=== PATIENT | female | born 2000 | race Caucasian/White ===

== ENCOUNTER 2019-09-16 13:34 | Outpatient (RCR) | payer MEDICAID, SELFPAY | END 2019-10-06 00:01 | LOC: LAB 13:34 | DX: C41.9 Malignant neoplasm of bone and articular cartilage, unspecified (principal) | CPT/HCPCS: 36415; 80053; 83735; 85007; 85027 ==

== ENCOUNTER 2019-10-09 14:49 | Outpatient (CLI) | payer MEDICAID, SELFPAY ==
[2019-10-09 15:16] LABS: Basophils % 0.6 %; Eosinophils # 0.2 10^3/uL (0.0-0.8); Eosinophils % 3.5 %; Hematocrit 34.7 % (37.0-47.0); Hemoglobin 11.2 g/dL (11.5-15.3); Lymphocytes # 1.8 10^3/uL (1.5-6.5); Lymphocytes % 34.2 %; Mean Corpuscular HGB Conc 32.3 g/dL (30.0-36.0); Mean Corpuscular Hemoglobin 30.4 pg (28.0-34.0); Mean Platelet Volume 9.7 fL (7.4-10.4); Monocytes # 0.4 10^3/uL (0.2-0.9); Monocytes % 6.9 %; Neutrophils # 2.8 10^3/uL (1.8-8.0); Neutrophils % 54.4 %; Nucleated Red Blood Cells % 0 %; Platelet Count 260 10^3/cmm (130-400); Red Blood Count 3.69 10^6/uL (4.1-5.3); Red Cell Distribution Width 16.3 % (12.1-15.1); White Blood Count 5.2 10^3/uL (4.5-13.0)
[2019-10-09 15:34] LABS: Alanine Aminotransferase 43 U/L (0-33); Albumin Level 5.4 g/dL (3.5-5.2); Alkaline Phosphatase 135 IU/L (35-105); Anion Gap 16.8 (5-19); Aspartate Amino Transferase 23 U/L (0-32); Blood Urea Nitrogen 14 mg/dL (6-20); Calcium 10.3 mg/Dl (8.6-10.0); Carbon Dioxide 23 mmol/L (22-29); Chloride 102 mmol/L (98-107); Glomerular Filtration Rate 80.7 mL/min (90-130); Glucose 105 mg/dL (74-109); Magnesium 2.2 mg/dL (1.7-2.2); Phosphorus 4.3 mg/dL (2.5-4.5); Potassium 3.8 mmol/L (3.5-5.1); Sodium 138 mmol/L (136-145); Total Bilirubin 0.4 mg/dL (0.15-1.2); Total Protein 7.4 g/dL (6.6-8.7)
== END 2019-10-09 14:50 | disposition home or self-care (01) ==
LOC: LAB 14:58
PROVIDERS: Family Provider Emergency Medicine; PCP Emergency Medicine; Referring Provider Emergency Medicine; Visit Provider Emergency Medicine
DX: C41.9 Malignant neoplasm of bone and articular cartilage, unspecified (principal)
CPT/HCPCS: 36415; 80053; 83735; 84100; 85025

== ENCOUNTER 2019-11-26 07:52 | Outpatient (CLI) | payer MEDICAID, SELFPAY ==
[2019-11-26 08:28] LABS: Basophils # 0.1 10^3/uL (0.0-0.1); Basophils % 0.7 %; Eosinophils % 0.1 %; Hematocrit 31.8 % (37.0-47.0); Lymphocytes # 1.8 10^3/uL (1.5-6.5); Lymphocytes % 24.9 %; Mean Corpuscular HGB Conc 31.4 g/dL (30.0-36.0); Mean Corpuscular Hemoglobin 28.7 pg (28.0-34.0); Mean Corpuscular Volume 91.4 fL (81-99); Mean Platelet Volume 11.1 fL (7.4-10.4); Monocytes # 0.7 10^3/uL (0.2-0.9); Monocytes % 10.1 %; Neutrophils # 4.4 10^3/uL (1.8-8.0); Neutrophils % 62.8 %; Nucleated Red Blood Cells % 0 %; Platelet Count 323 10^3/cmm (130-400); Red Blood Count 3.48 10^6/uL (4.1-5.3)
[2019-11-26 08:41] LABS: Alanine Aminotransferase 10 U/L (0-33); Albumin Level 4.1 g/dL (3.5-5.2); Alkaline Phosphatase 130 IU/L (35-105); Aspartate Amino Transferase 14 U/L (0-32); Blood Urea Nitrogen 11 mg/dL (6-20); Calcium 9.7 mg/dL (8.5-10.5); Carbon Dioxide 25 mmol/L (22-29); Chloride 101 mmol/L (98-107); Globulin 3.7 g/dL (1.3-4.6); Glomerular Filtration Rate 107.8 mL/min (90-130); Glucose 110 mg/dL (65-115); Magnesium 2.4 mg/dL (1.7-2.2); Phosphorus 4.5 mg/dL (2.5-4.5); Sodium 139 mmol/L (136-145); Total Bilirubin 0.2 mg/dL (0.15-1.2); Total Protein 7.8 g/dL (6.6-8.7)
== END 2019-11-26 07:53 | disposition home or self-care (01) ==
PROVIDERS: Visit Provider Emergency Medicine
DX: C41.9 Malignant neoplasm of bone and articular cartilage, unspecified (principal)
CPT/HCPCS: 36415; 80053; 83735; 84100; 85025

== ENCOUNTER 2021-01-02 19:59 | Emergency (ER) | payer BC, MEDICAID, SELFPAY ==
[2021-01-02 20:22] VITALS: BP 145/87; PULSE 110; RESP 17; TEMP 36.7; O2SAT 100; BMI 24.2
[2021-01-03 00:25] VITALS: BP 92/44; PULSE 62; RESP 16; O2SAT 98
--- NOTE | 2021-01-03 00:34 | W.ED.PREGNAN ---
HPI - General: Chief complaint: Vaginal Bleeding Stated complaint: sharp pain in back, spotting Time Seen by Provider: 01/03/21 00:16 Source: patient Mode of arrival: ambulatory Limitations: no limitations History of Present Illness: HPI Narrative: 20-year-old female states she took a test today and it came back positive. She states she believes she is anywhere from 4 to 7 weeks . She states that she started having vaginal spotting today and some lower back pain. She denies any clots passing and denies any abdominal pain. She denies any worsening improving factors. She had 1 previous with no problems. She had no vomiting or diarrhea. MD Complaint: abdominal pain and vaginal bleeding Date of Last Menstrual Period: 11/02/20 Associated symptoms: Deny abdominal pain, headache(s), nausea or vomiting Review of Systems Const: Denies: fever(s), chills, body aches or change in appetite Eyes: Denies: blurry vision or eye discomfort ENMT: Denies: throat pain or dental pain Card: Denies: chest pain Resp: Denies: dyspnea GI: Denies: abdominal pain, nausea, vomiting or diarrhea : Reports: vaginal bleeding Musc: Reports: back pain Skin/Breast: Denies: rash Neuro: Denies: headache(s) Psych: Denies: depression Rod/Lymph: Denies: easy bruising All/Imm: Denies: urticaria [facility] ED Female Reproductive History: Date of last menstrual period: 11/02/20 Physical Exam Const: COMMON NORMALS: no acute distress, patient oriented x3 and healthy appearing HENMT: COMMON NORMALS: normocephalic and atraumatic HEAD & SCALP: normocephalic and atraumatic Eye: COMMON NORMALS: Equal, round and reactive pupils present and EOMs intact bilaterally PUPIL: Yes Equal, round and reactive pupils present Neck/C-Spine: COMMON NORMALS: full ROM and supple Chest: COMMONS NORMALS: normal inspection of the chest and normal palpation of entire chest wall Resp: COMMON NORMALS: normal respiratory effort, No retractions, No use of accessory muscles and clear to auscultation bilaterally AUSCULTATION: clear to auscultation bilaterally Cardio: COMMON NORMALS: regular rate, regular rhythm and No murmurs present (Cardio) RATE: regular rate RHYTHM: regular rhythm GI: COMMON NORMALS: Normal to inspection, nondistended, normoactive bowel sounds present, Soft to palpation, non-tender and no masses PALPATION: Yes Soft to palpation Extremity: COMMON NORMALS: normal to inspection and full ROM Neuro: COMMON NORMALS: patient oriented x3, moves all extremities and no focal motor deficits Psych: COMMON NORMALS: mental status grossly normal, Normal thought process present and cooperative THOUGHT PROCESS: Normal thought process present Skin: COMMON NORMALS: no rashes or lesions noted and no wounds GENERAL SKIN EXAM: no rashes or lesions noted Course Vital Signs: Vital signs: Vital Signs Temperature 98.1 F 01/02/21 20:22 Pulse Rate 77 01/03/21 01:30 Respiratory Rate 15 01/03/21 01:30 Blood Pressure 113/56 01/03/21 01:30 Pulse Oximetry 98 01/03/21 01:30 MDM - OB/Uterine Contractions MDM Narrative: Medical decision making narrative: Patient presents here with threatened miscarriage. Her bleeding is very minimal and her formal ultrasound here showed an IUP at 6 weeks. She does have a urinary tract infection. She is to follow-up with her OB and she is to take Keflex. She is return if worsening. She understands agrees to plan. Lab Data: Labs: Lab Results 01/02/21 01/02/21 01/02/21 Range/Units 00:23 00:23 00:23 WBC 6.2 (4.0-10.0) 10^3/ uL RBC 4.05 L (4.1-5.3) 10^6/u L Hgb 12.7 (11.5-15.3) g/dL Hct 38.0 (37.0-47.0) % MCV 93.8 (81-99) fL MCH 31.4 (28.0-34.0) pg MCHC 33.4 (30.0-36.0) g/dL RDW 13.2 (12.1-15.1) % Plt Count 215 (130-400) 10^3/c mm MPV 9.8 (7.4-10.4) fL Neut % (Auto) 54.4 % Lymph % (Auto) 35.6 % [place]al[place] % (Auto) 8.1 % Eos % (Auto) 1.3 % Baso % (Auto) 0.3 % Neut # (Auto) 3.35 (1.8-7.7) 10^3/u L Lymph # (Auto) 2.2 (0.8-4.8) 10^3/u L [place]alier # (Auto) 0.5 (0.2-0.9) 10^3/u L Eos # (Auto) 0.1 (0.0-0.8) 10^3/u L Baso # (Auto) 0.0 (0.0-0.1) 10^3/u L Nucleated RBC % (a uto) 0 % Nucleated RBCs # 0.0 /100WBC Sodium 134 L (136-145) mmol/L Potassium 3.7 (3.5-5.1) mmol/L Chloride 102 (98-107) mmol/L Carbon Dioxide 21 L (22-29) mmol/L Anion Gap 14.7 (5-19) BUN 9 (6-20) mg/dL Creatinine 0.5 (0.5-0.9) mg/dL GFR Calculation 155.7 H (90-130) mL/min Glucose 81 (65-115) mg/dL Calculated Osmolal ity 276 L (285-295) mOsm/k g Calcium 8.9 (8.5-10.5) mg/dL Total Bilirubin 0.3 (0.15-1.2) mg/dL AST 9 (0-32) U/L ALT 8 (0-33) U/L Alkaline Phosphata se 144 H (35-105) IU/L Total Protein 6.7 (6.6-8.7) g/dL Albumin 4.0 (3.5-5.2) g/dL Globulin 2.7 (1.3-4.6) g/dL Ser , [place] 56[address].00 mIU/mL Urine Color (Yellow) Urine Appearance (CLEAR) Urine pH (5-7) Ur Specific Gravit y (1.005-1.030) Urine Protein (Negative) Urine Glucose (UA) (Normal) Urine Ketones (Negative) Urine Blood (Negative) Urine Nitrate (Negative) Urine Bilirubin (Negative) Urine Urobilinogen (Negative) mg/dL Ur Leukocyte Cookie ase (Negative) Urine RBC (0-2) /hpf Urine WBC (0-5) /hpf Ur Squamous Epith Cells (0-5) /hpf Amorphous Sediment Urine Bacteria (NONE) /hpf Urine Mucus /hpf Blood Type A Positive Rho(D) Type Positive / 4+ 01/02/21 Range/Units 22:40 WBC (4.0-10.0) 10^3/ uL RBC (4.1-5.3) 10^6/u L Hgb (11.5-15.3) g/dL Hct (37.0-47.0) % MCV (81-99) fL MCH (28.0-34.0) pg MCHC (30.0-36.0) g/dL RDW (12.1-15.1) % Plt Count (130-400) 10^3/c mm MPV (7.4-10.4) fL Neut % (Auto) % Lymph % (Auto) % Cavalier % (Auto) % Eos % (Auto) % Baso % (Auto) % Neut # (Auto) (1.8-7.7) 10^3/u L Lymph # (Auto) (0.8-4.8) 10^3/u L [place]ier # (Auto) (0.2-0.9) 10^3/u L Eos # (Auto) (0.0-0.8) 10^3/u L Baso # (Auto) (0.0-0.1) 10^3/u L Nucleated RBC % (a uto) % Nucleated RBCs # /100WBC Sodium (136-145) mmol/L Potassium (3.5-5.1) mmol/L Chloride (98-107) mmol/L Carbon Dioxide (22-29) mmol/L Anion Gap (5-19) BUN (6-20) mg/dL Creatinine (0.5-0.9) mg/dL GFR Calculation (90-130) mL/min Glucose (65-115) mg/dL Calculated Osmolal ity (285-295) mOsm/k g Calcium (8.5-10.5) mg/dL Total Bilirubin (0.15-1.2) mg/dL AST (0-32) U/L ALT (0-33) U/L Alkaline Phosphata se (35-105) IU/L Total Protein (6.6-8.7) g/dL Albumin (3.5-5.2) g/dL Globulin (1.3-4.6) g/dL Ser , Ritika i-Qnt mIU/mL Urine Color Yellow (Yellow) Urine Appearance Sl hazy (CLEAR) Urine pH 5 (5-7) Ur Specific Gravit y 1.025 (1.005-1.030) Urine Protein 1+ H (Negative) Urine Glucose (UA) Norm (Normal) Urine Ketones 1+ H (Negative) Urine Blood Neg (Negative) Urine Nitrate Positive H (Negative) Urine Bilirubin Neg (Negative) Urine Urobilinogen Norm (Negative) mg/dL Ur Leukocyte Cookie ase Negative (Negative) Urine RBC 0-4 H (0-2) /hpf Urine WBC 0-4 H (0-5) /hpf Ur Squamous Epith Cells 0-4 H (0-5) /hpf Amorphous Sediment Not Reportable Urine Bacteria 2+ H (NONE) /hpf Urine Mucus 2+ /hpf Blood Type Rho(D) Type Discharge Plan Discharge Patient Disposition: Home Clinical Impression: Threatened , Acute cystitis Condition: Stable Prescriptions: New cephalexin 500 mg capsule 500 mg PO TID 7 Days Qty: 21 RF: 0 Discharge Orders: Discharge ED (Routine); Ordered 01/03/21 Ordered By: Madeline Campbell Discharge Diet: Advance as tolerated Discharge Activity: Resume usual activity Patient Instructions: Threatened Miscarriage (ED), Urinary Tract Infection in Women (ED) Coding Level of Care Code ED Client Success Specialist for Alberto Fwd Exam Comprehensive
[2021-01-03 00:35] LABS: Basophils % 0.3 %; Eosinophils # 0.1 10^3/uL (0.0-0.8); Eosinophils % 1.3 %; Hemoglobin 12.7 g/dL (11.5-15.3); Lymphocytes # 2.2 10^3/uL (0.8-4.8); Lymphocytes % 35.6 %; Mean Corpuscular HGB Conc 33.4 g/dL (30.0-36.0); Mean Corpuscular Hemoglobin 31.4 pg (28.0-34.0); Mean Corpuscular Volume 93.8 fL (81-99); Mean Platelet Volume 9.8 fL (7.4-10.4); Monocytes # 0.5 10^3/uL (0.2-0.9); Monocytes % 8.1 %; Neutrophils # 3.35 10^3/uL (1.8-7.7); Neutrophils % 54.4 %; Nucleated Red Blood Cells % 0 %; Platelet Count 215 10^3/cmm (130-400); Red Blood Count 4.05 10^6/uL (4.1-5.3); Red Cell Distribution Width 13.2 % (12.1-15.1); White Blood Count 6.2 10^3/uL (4.0-10.0)
[2021-01-03 00:55] LABS: Add Urine Culture? Yes; Add Urine Microscopic? YES; Bacteria Urine 2+ /hpf; Bilirubin Urine Neg (Negative); Blood Urine Neg (Negative); Glucose Urine UA Norm (Normal); Ketones Urine 1+ (Negative); Leukocyte Esterase Urine Negative (Negative); Mucus Urine 2+ /hpf; Nitrate Urine Positive (Negative); Protein Urine 1+ (Negative); RBC Urine 0-4 /hpf (0-2); Specific Gravity, Urine 1.025 (1.005-1.030); Squamous Epithelial Cell Urine 0-4 /hpf (0-5); Urine Appearance SL Hazy (CLEAR); Urine Color Yellow (Yellow); Urobilinogen Urine Norm (Negative); WBC Urine 0-4 /hpf (0-5); pH Urine 5 (5-7)
[2021-01-03 01:00] LABS: Alanine Aminotransferase 8 U/L (0-33); Alkaline Phosphatase 144 IU/L (35-105); Anion Gap 14.7 (5-19); Aspartate Amino Transferase 9 U/L (0-32); Blood Urea Nitrogen 9 mg/dL (6-20); Calcium 8.9 mg/dL (8.5-10.5); Carbon Dioxide 21 mmol/L (22-29); Chloride 102 mmol/L (98-107); Globulin 2.7 g/dL (1.3-4.6); Glomerular Filtration Rate 155.7 mL/min (90-130); Glucose 81 mg/dL (65-115); Osmolality Calculated 276 mOsm/kg (285-295); Potassium 3.7 mmol/L (3.5-5.1); Sodium 134 mmol/L (136-145); Total Bilirubin 0.3 mg/dL (0.15-1.2); Total Protein 6.7 g/dL (6.6-8.7)
--- NOTE | 2021-01-03 01:28 | US_ITS ---
WS: [id number] EARLY OBSTETRICAL ULTRASOUND (<14 WEEKS). HISTORY: vaginlal bleeding COMPARISON: None available. Single intrauterine gestational sac is identified. Cardiac activity at 160 BPM. [place]-rump length chapin sures 0.9 cm which corresponds to a gestation of 6w6d. Normal-appearing yolk sac and amnion demonstra bette. No subchorionic hemorrhage. No free fluid. Simple cyst but is likely a corpus luteum associated with the RIGHT ovary. Cyst measures 1.8 x 3.0 x 2.6 cm. Normal vascularity in the adjacent ovary. LEFT ovary is normal. Cervix is closed. US/US OB <=14 wk fetus w transvag IMPRESSION: 1. Single intrauterine gestation of 6 weeks 6 days with an EDC of 08/23/2021. 2. Moderate size RIGHT ovarian corpus luteum cyst.
[2021-01-03 01:30] VITALS: BP 113/56; PULSE 77; RESP 15; O2SAT 98
[2021-01-03] MEDS: cephALEXin 500 mg Capsule PO (01:46)
[2021-01-03 02:46] VITALS: BP 116/64; PULSE 78; RESP 18; O2SAT 97
== END 2021-01-03 02:48 | disposition home or self-care (01) ==
PROVIDERS: Nurse Practitioner Family; Emergency Provider Emergency Medicine
DX: O20.0 Threatened abortion (principal); O23.11 Infections of bladder in pregnancy, first trimester; Z3A.01 Less than 8 weeks gestation of pregnancy
CPT/HCPCS: 76801; 76817; 80053; 81001; 84702; 85025; 86900; 87086; 99283

== ENCOUNTER 2021-02-21 10:38 | Emergency (ER) | payer BC, MEDICAID, SELFPAY ==
[2021-02-21 11:24] VITALS: BP 114/72; PULSE 92; RESP 16; TEMP 36.7; O2SAT 96; BMI 21.4
[2021-02-21 12:45] VITALS: BP 114/72; PULSE 92; RESP 16; O2SAT 96
--- NOTE | 2021-02-21 12:58 | ED_ITS ---
HPI - Skin/Abscess/Foreign Bdy General: Chief complaint: Eye Problems Stated complaint: left eye swelling Time Seen by Provider: 02/21/21 12:28 Source: patient Mode of arrival: ambulatory Limitations: no limitations History of Present Illness: HPI narrative: Patient is a 20-year-old female who presents to ED today for evaluation of a rash. Patient tells me she first noticed rash to her right arm yesterday after being outside. She states rash has since spread to her left arm and the left side of her face. She became concerned when she woke up this morning and her left eye was swollen. She describes the itch as burning and pruritic. Denies any household or chemical exposures. Patient is 16 weeks . MD complaint: rash Onset (ago): hour(s) Tetanus up to date: yes Location: face, LUE and RUE Severity: mild Quality: burning and pruritic Pain Consistency: constant Relieving factors: none Exacerbating factors: none Context: none Associated symptoms: Reports no associated symptoms; Deny chills, fever(s), nausea or vomiting Treatments prior to arrival: Benadryl Review of Systems Const: Denies: fever(s), chills, body aches, fatigue or malaise Eyes: Reports: other (swelling around L eye); Denies: change in vision, blurry vision, photophobia, eye discomfort, eye discharge, eye redness, floaters or seeing flashes ENMT: Denies: throat pain, odynophagia, mouth pain, ear or mastoid pain, ear discharge, nasal discharge, nasal congestion, epistaxis, post nasal drip or sinus pain Card: Denies: chest pain Resp: Denies: dyspnea GI: Denies: abdominal pain, nausea or vomiting Musc: Denies: neck pain, back pain, extremity pain, joint pain or joint swelling Skin/Breast: Reports: rash and pruritus Neuro: Denies: headache(s), numbness in extremities, weakness in extremities, sensory changes or dizziness PFS ED PFSH: Medical History (Updated 02/21/21 @ 14:09 by AB Olivier) No pertinent past medical history neghx:htn,dm,thyroid,dvt/pe PCP: None Port-A-Cath in place (~2018) last accessed 04/19/2020 Surgical History (Updated 02/15/21 @ 14:19 by Brittnee Zimmer APN, PAT) History of lung surgery (~2019) four nodules in lung removed- benign Hx of knee surgery (~2019) L knee-- osteosarcoma; removal the bone and chemotherapy; 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 Family History Grandfather Diabetes Maternal Hypercholesteremia Maternal Hypertension Maternal Stroke Maternal Family/Other Diabetes Maternal Aunt Denies family history of Colon cancer Ovarian cancer Heart disease Breast cancer Uterine cancer Thyroid disease Female Reproductive History: Date of last menstrual period: 11/02/20 Physical Exam Const: COMMON NORMALS: no acute distress, average body habitus, patient oriented x3, no limitations, healthy appearing, alert and well nourished GENERAL APPEARANCE: cooperative ORIENTATION/CONSCIOUSNESS: Yes awake, Yes oriented to person, Yes oriented to place and Yes oriented to time HENMT: COMMON NORMALS: normocephalic and atraumatic HEAD & SCALP: normocephalic and atraumatic FACE & SINUS: other (L periorbital swelling secondary to rash/allergic rxn) OTHER: erythematous maculopapular rash to L side of face, periorbtial region and neck Eye: COMMON NORMALS: Equal, round and reactive pupils present, EOMs intact bilaterally, conjunctivae normal and no scleral icterus VISUAL ACUITY: Yes ac uity normal CONJUNCTIVA: Yes conjunctivae normal SCLERA: sclerae normal CORNEA: Yes corneas normal PUPIL: Yes Equal, round and reactive pupils present Neck/C-Spine: COMMON NORMALS: full ROM, no lymphadenopathy and no meningeal signs OTHER: maculopapular erythematous clusters to L sided of neck Resp: COMMON NORMALS: normal respiratory effort and clear to auscultation bilaterally AUSCULTATION: clear to auscultation bilaterally Cardio: COMMON NORMALS: regular rate and regular rhythm RATE: regular rate RHYTHM: regular rhythm Extremity: NARRATIVE EXTREMITY EXAM: similar rash to flexural crease of R elbow; few scattered lesions to volar L forearm Neuro: COMMON NORMALS: patient oriented x3 SENSORIUM/ORIENTATION: Yes alert, Yes oriented to person, Yes oriented to place and Yes oriented to time MENINGEAL SIGNS: Yes no meningeal signs Skin: NARRATIVE SKIN EXAM: see facial and extremity assessments; otherwise normal skin exam Course Consultations: Consultation #1: Dr. Curt/OB-stated it would be safe at [address] patient on an oral prednisone taper Vital Signs: Vital signs: Vital Signs Temperature 98.1 F 02/21/21 11:24 Pulse Rate 92 02/21/21 12:45 Respiratory Rate 16 02/21/21 12:45 Blood Pressure 114/72 02/21/21 12:45 Pulse Oximetry 96 02/21/21 12:45 Discharge Plan Discharge Patient Disposition: Home Clinical Impression: Contact dermatitis due to plant Condition: Stable Prescriptions: New prednisone 10 mg tablet 10 mg PO DAILY 10 Days Qty: 41 RF: 0 No Action Gummies 400 mcg-35 mg- 25 mg-5 mg tablet,chewable PO RF: 0 Discharge Orders: Discharge ED (Routine); Ordered 02/21/21 Ordered By: Marleni Medeiros Patient Instructions: Poison Rosi (ED), Poison [place], [place], and [place] - Adult Coding Level of Care Code ED Global Technical Writer for Chg Fwd Exam Detailed
== END 2021-02-21 14:25 | disposition home or self-care (01) ==
PROVIDERS: Emergency Provider Physician Assistant
DX: L25.5 Unspecified contact dermatitis due to plants, except food (principal)
CPT/HCPCS: 99282

== ENCOUNTER → 2021-02-27 14:44 | Outpatient (BNVA) | payer BC, MEDICAID, SELFPAY | PROVIDERS: Visit Provider Obstetrics & Gynecology | DX: Z34.80 Encounter for supervision of other normal pregnancy, unspecified trimester (principal) | CPT/HCPCS: 80307; 81000; 85027; 86592; 86762; 86803; 86850; 87086; 87340; 87491; 87591; 87806; 88175 ==

== ENCOUNTER 2022-11-03 05:31 | Outpatient (CLI) | payer BC, MEDICAID, SELFPAY ==
[2022-11-03] VITALS (12 sets, daily range): BP systolic 99–126; BP diastolic 58–65; PULSE 68–97; RESP 18; TEMP 35.7; BMI 23.1
[2022-11-03 06:07] LABS: Amphetamines Screen Urine Negative (Negative); Barbiturates Screen Urine Negative (Negative); Benzodiazepines Screen Urine Negative (Negative); Cocaine Screen Urine Negative (Negative); Opiate Screen Urine Negative (Negative); PCP Screen Urine Negative (Negative); THC Screen Urine Negative (Negative)
[2022-11-03 06:13] LABS: Bilirubin Urine Neg (Negative); Blood Urine Neg (Negative); Glucose Urine UA Norm (Normal); Ketones Urine Negative (Negative); Leukocyte Esterase Urine Negative (Negative); Nitrate Urine Negative (Negative); Protein Urine Neg (Negative); Specific Gravity, Urine 1.015 (1.005-1.030); Urine Appearance Clear (CLEAR); Urine Color Yellow (Yellow); Urobilinogen Urine Neg (Negative); pH Urine 7 (5-7)
[2022-11-03 06:15] LABS: Add Urine Culture? Yes; Bacteria Urine TRACE /hpf; Mucus Urine 1+ /hpf; RBC Urine 0-4 /hpf (0-2); WBC Urine 0-4 /hpf (0-5)
--- NOTE | 2022-11-03 06:20 | USR_ITS ---
PROCEDURE INFORMATION: Exam: US , Limited Exam date and time: 11/03/2022 7:51 AM Age: 21 years old Clinical indication: complicated by abdominal or pelvic pain; Lower; Second trimester (14 weeks 0 days to 27 weeks 6 days); Gestational age or lmp: 21 weeks; ; Additional info: Abdominal pain 21.0 weeks LABS AND CLINICAL REPORTS: Last menstrual period start date: 06/09/2022 Gestational age (Established): 21 w 0 d Estimated due date (Established): 03/16/2023 TECHNIQUE: Imaging protocol: Real-time ultrasound of the maternal uterus with image documentation. Exam focused on the clinical indication. COMPARISON: US OB <=14 wk fetus w transvag 01/03/2021 2:04 AM FINDINGS: Single, live intrauterine gestation with heart rate of 133 bpm. The biparietal diameter is 4.9 cm (46th percentile). The head circumference is 19 cm (51st percentile). The abdominal circumference is 14.8 cm (16th percentile). The femoral length is 3.5 cm (45th percentile). The estimated gestational age by measurement is 20 weeks, 6 days. The presentation is breech. The placenta is situated anteriorly. There is no evidence of placenta previa. The estimated weight is 367 g (13 oz). The cervix is closed and measures 5.2 cm in length. US/US OB limited [id number] IMPRESSION: 1. Single, live intrauterine gestation with estimated gestational age by measurement of 20 weeks, 6 days. 2. The presentation is breech. 3. The abdominal circumference is at the 16th percentile.
[2022-11-03] MEDS: acetaminophen 500 mg Tablet 1000 MG PO (06:43)
== END 2022-11-03 08:30 | disposition home or self-care (01) ==
LOC: OPOB 05:32 → OBGYN 05:33
PROVIDERS: Visit Provider Obstetrics & Gynecology
DX: O26.899 Other specified pregnancy related conditions, unspecified trimester (principal); Z3A.00 Weeks of gestation of pregnancy not specified; R10.9 Unspecified abdominal pain
CPT/HCPCS: 76815; 80306; 81001; 87086; 99211

== ENCOUNTER → 2022-11-13 09:00 | Outpatient (BNVA) | payer BC, MEDICAID, SELFPAY | PROVIDERS: Visit Provider Nurse Practitioner Women's Health | DX: Z34.80 Encounter for supervision of other normal pregnancy, unspecified trimester (principal) | CPT/HCPCS: 81000 ==